=== PATIENT | female | born 1960 | race Caucasian/White ===

== ENCOUNTER 2018-06-07 09:20 | Emergency (ER) | payer OTHER ==
[~2018-06-07] VITALS: Ht 167.6 cm; Wt 90.7 kg
[2018-06-07] MEDS ORDERED: COZAAR 25 MG TA25 M2 PO (09:38)
[2018-06-07] MEDS ORDERED: ASPIR 8181 MG PO (09:39)
[2018-06-07] MEDS ORDERED: GLUCOPHAGE XR500 MG PO (09:39)
[2018-06-07 11:11] VITALS: BP 139/63
== END 2018-06-07 11:12 | disposition home or self-care (01) ==
LOC: M.ERS 09:20
DX: M25.561 Pain in right knee (principal); M25.562 Pain in left knee; R42 Dizziness and giddiness; T58.91XA Toxic effect of carbon monoxide from unspecified source, accidental (unintentional), initial encounter; I10 Essential (primary) hypertension; Z90.710 Acquired absence of both cervix and uterus; Z90.49 Acquired absence of other specified parts of digestive tract; Z86.73 Personal history of transient ischemic attack (TIA), and cerebral infarction without residual deficits; Z88.6 Allergy status to analgesic agent; Y92.89 Other specified places as the place of occurrence of the external cause